=== PATIENT | male | born 1995 | race Caucasian/White ===

== ENCOUNTER 2021-12-06 12:14 | Emergency (ER) | payer OTHER ==
[2021-12-06 12:24] VITALS: BP 144/67
[2021-12-06] MEDS ORDERED: BACITRACIN ZINC OINT 1 PACKET TOP STA (12:48)
--- NOTE | 2021-12-06 12:48 | ED Physician Documentation ---
PD HPI UPPER EXT INJURY - Stated complaint Stated Complaint: LAC RT THUMB - Chief complaint Chief Complaint: Laceration - History obtained from History obtained from: Patient - History of Present Illness Location: Left, Finger Type of injury: Laceration - Additonal information Additional information: 26yoM presents after accidental laceration to L thumb. Cut on piece of metal just prior to arrival. Up to date on tetanus shot. Patient here because he is worried that he might get it infected. He works in a kitchen and handles raw meat frequently. Denies numbness, weakness, decreased movement, decreased sensation, other complaints at this time. Review of Systems Ten Systems: 10 systems reviewed and negative Constitutional: denies: Fever, Chills, Myalgias, Fatigue, Weight Loss, Sweats, Reviewed and negative, Other Eyes: denies: Loss of vision, Decreased vision, Photophobia, Discharge, Irritation, Reviewed and negative, Other Ears: denies: Loss of hearing, Ear pain, Drainage/discharge, Tinnitus/ringing, Foreign body, Reviewed and negative, Other Nose: denies: Rhinorrhea / runny nose, Congestion, Epistaxis, Sinus pressure / pain, Foreign Body, Reviewed and negative, Other Throat: denies: Dental pain / toothache, Oral lesions / sores, Sore throat, Swollen tonsils, Swallowed foreign body, Reviewed and negative, Other Cardiac: denies: Chest pain / pressure, Palpitations, Pedal edema, Calf pain, Reviewed and negative, Other Respiratory: denies: Dyspnea, Cough, Hemoptysis, Wheezing, Reviewed and negative, Other GI: denies: Abdominal Pain, Abdominal Swelling, Nausea, Vomiting, Constipation, Diarrhea, Hematemesis, Bloody / black stool, Reviewed and negative, Other : denies: Dysuria, Frequency, Hesitancy, Unable to Void, Incontinent, Hematuria, Discharge, LMP, Vaginal bleeding, Irregular menses, Missed period, Now EGA, Control, Hysterectomy, Testicular pain, Testicular mass, Camacho Problem, Reviewed and negative, Other Skin: reports: Laceration (s). denies: Rash, Lesions, Bite / sting Musculoskeletal: denies: Neck pain, Back pain, Extremity pain, Joint pain, Extremity swelling, Joint swelling, Pain with weight bearing, Reviewed and negative, Other Neurologic: denies: Generalized weakness, Focal weakness, Numbness, Difficulty speaking, Near syncope, Syncope, Seizure, Confused, Altered mental status, Unresponsive, Headache, Head injury, LOC, Reviewed and negative, Other Psychiatric: reports: Reviewed and negative. denies: Depressed, Suicidal, Homicidal, Hallucinations, Delusions, Anxiety, Insomnia, Other PD PAST MEDICAL HISTORY - Past Medical History Past Medical History: No - Allergies Allergies/Adverse Reactions: Allergies Allergy/AdvReac Type Severity Reaction Status Date / Time No Known Drug Allergies Allergy Verified 12/06/21 12:24 PD ED PE NORMAL - Vitals Vital signs reviewed: Yes - General General: Alert and oriented X 3, No acute distress, Well developed/nourished, Other - HEENT HEENT: Atraumatic, PERRL, EOMI, Ears normal, Moist mucous membranes, Pharynx benign, Dentition benign, Other - Neck Neck: Supple, no meningeal sign, No bony TTP, No adenopathy, Thyroid normal, No JVD, No bruit, C-Spine cleared by NEXUS criteria, Other - Cardiac Cardiac: RRR, No murmur, No gallop, No rub, Strong equal pulses, Other - Respiratory Respiratory: No respiratory distress, Clear bilaterally, Other - Abdomen Abdomen: Normal bowel sounds, Soft, Non tender, Non distended, No organomegaly, Other - Male Male : Deferred - Derm Derm: Normal color, Warm and dry, No rash, Other (superficial 1cm laceration base L thumb) PD ED PE EXPANDED - Extremities CHA UE/Hands Visual: 1 - laceration (1cm) Results - Vitals Vitals: Vital Signs - 24 hr 12/06/21 12:21 Temperature 36.3 C L Heart Rate 99 Respiratory 16 Rate Blood Pressure 144/67 H O2 Saturation 97 Oxygen O2 Source Room air PD MEDICAL DECISION MAKING - ED course ED course: 1cm superficial laceration. No tendon involvement. UTD on tetanus. Patient declined sutures, requested note for work in order to avoid contaminating laceration with raw meat Departure - Departure Disposition: 01 Home, Self Care Clinical Impression: Laceration Condition: Good Instructions: ED Laceration All, ED Laceration Hand Comments: Keep wound clean and dry. Change bandage at least once daily. Avoid handling raw food or standing water until wound closes in approximately 3 to 4 days. Take Tylenol and Motrin as needed for pain. Discharge Date/Time: 12/06/21 12:57
== END 2021-12-06 12:57 | disposition home or self-care (01) ==
LOC: ED 12:14
DX: S61.011A Laceration without foreign body of right thumb without damage to nail, initial encounter (principal); W26.8XXA Contact with other sharp object(s), not elsewhere classified, initial encounter
CPT/HCPCS: 99281; 99282; A9270

== ENCOUNTER 2022-04-09 12:24 | Emergency (ER) | payer OTHER ==
[2022-04-09 12:38] VITALS: BP 135/69
[2022-04-09 13:07] LABS: BILIRUBIN,URINE NEGATIVE (NEGATIVE); GLUCOSE, URINE (UA) NEGATIVE (NEGATIVE); KETONES,URINE (UA) NEGATIVE (NEGATIVE); LEUKOCYTE ESTERASE, URINE NEGATIVE (NEGATIVE); NITRITE,URINE NEGATIVE (NEGATIVE); OCCULT BLOOD,URINE NEGATIVE (NEGATIVE); PH,URINE 6.5 PH (5.0-7.5); PROTEIN,URINE NEGATIVE (NEGATIVE); UROBILINOGEN,URINE 0.2 (NORMAL) E.U./dL (NORMAL)
[2022-04-09 13:12] LABS: CLARITY,URINE CLEAR (CLEAR)
[2022-04-09 13:26] LABS: BASOPHILS # (AUTO) 0.1 10^3/uL (0.0-0.1); BASOPHILS % (AUTO) 1.3 %; EOSINOPHILS # (AUTO) 0.4 10^3/uL (0.0-0.7); EOSINOPHILS % (AUTO) 6.5 %; HCT - HEMATOCRIT 43.4 % (42.0-52.0); HGB - HEMOGLOBIN 14.3 g/dL (14.0-18.0); LYMPHOCYTES # (AUTO) 2.7 10^3/uL (1.5-3.5); LYMPHOCYTES % (AUTO) 40.1 %; MEAN CORPUSCULAR HEMOGLOBIN 28.8 pg (27.0-31.0); MEAN CORPUSCULAR HGB CONC 32.9 g/dL (32.0-36.0); MEAN CORPUSCULAR VOLUME 87.5 fL (80.0-94.0); MEAN PLATELET VOLUME 9.7 fL (7.4-11.4); MONOCYTES # (AUTO) 0.4 10^3/uL (0.0-1.0); MONOCYTES % (AUTO) 6.5 %; NEUTROPHILS # (AUTO) 3.1 10^3/uL (1.5-6.6); NEUTROPHILS % (AUTO) 45.5 %; PLT - PLATELET COUNT 245 10^3/uL (130-450); RED BLOOD COUNT 4.96 10^6/uL (4.70-6.10); RED CELL DISTRIBUTION WIDTH 12.5 % (12.0-15.0); WHITE BLOOD COUNT 6.8 x10^3/uL (4.8-10.8)
[2022-04-09 13:30] LABS: ALBUMIN 4.5 g/dL (3.2-5.5); ALBUMIN/GLOBULIN RATIO 1.5 (1.0-2.2); BILIRUBIN,TOTAL 0.6 mg/dL (0.2-1.0); CALCIUM 9.6 mg/dL (8.5-10.3); CREATININE 1.1 mg/dL (0.6-1.2); TOTAL PROTEIN 7.6 g/dL (6.7-8.2)
== END 2022-04-09 14:16 | disposition left against medical advice (07) ==
LOC: ED 12:24
DX: Z53.21 Procedure and treatment not carried out due to patient leaving prior to being seen by health care provider (principal)
CPT/HCPCS: 36415; 80053; 81001; 81003; 83690; 85025; 87086

== ENCOUNTER 2022-04-29 10:07 | Outpatient (CLI) | payer OTHER | END 2022-04-29 23:59 | disposition critical access hospital (66) | LOC: EMS 10:07 | DX: R10.32 Left lower quadrant pain (principal); R07.9 Chest pain, unspecified; R11.0 Nausea | CPT/HCPCS: A0425; A0427 ==

== ENCOUNTER 2022-04-29 10:28 | Emergency (ER) | payer OTHER ==
--- NOTE | 2022-04-29 10:48 | ED Physician Documentation ---
PD HPI ABD PAIN - Stated complaint Stated Complaint: L FLANK PX - Chief complaint Chief Complaint: Abd Pain - History obtained from History obtained from: Patient, EMS - History of Present Illness Timing - onset: Today Timing - duration: Minutes Timing - details: Abrupt onset, Still present Pain level max: 10 Pain level now: 10 Quality: Sharp, Pain Location: LLQ Radiation: Left flank Improved by: Laying still Worsened by: Breathing Associated symptoms: No: Fever, Nausea, Vomiting, Hematemesis, Diarrhea, Constipation Similar symptoms before: Has not had sx before Recently seen: Not recently seen - Additional information Additional information: 26 y/o male with acute left flank pain this morning. Worst pain he has ever had seems like deep breathing makes it worse. Review of Systems Constitutional: denies: Fever Ears: denies: Ear pain Nose: denies: Congestion Throat: denies: Sore throat Cardiac: denies: Chest pain / pressure, Palpitations Respiratory: denies: Dyspnea, Cough GI: reports: Abdominal Pain, Nausea. denies: Constipation, Diarrhea : denies: Dysuria, Frequency Skin: denies: Rash Musculoskeletal: reports: Back pain. denies: Neck pain, Extremity pain Neurologic: denies: Generalized weakness, Focal weakness, Numbness PD PAST MEDICAL HISTORY - Present Medications Home Medications: Ambulatory Orders Medication Instructions Recorded Confirmed HYDROcod/ACETAM 5/325 [[place] 5/325] 1 - 2 tablet PO Q6H PRN #14 tablet 04/29/22 - Allergies Allergies/Adverse Reactions: Allergies Allergy/AdvReac Type Severity Reaction Status Date / Time No Known Drug Allergies Allergy Verified 04/29/22 10:41 PD ED PE NORMAL - Vitals Vital signs reviewed: Yes - General General: Alert and oriented X 3, Well developed/nourished, Other (uncomfortable male appears to be in pain ) - HEENT HEENT: Atraumatic, PERRL, EOMI - Neck Neck: Supple, no meningeal sign - Cardiac Cardiac: RRR, No murmur - Respiratory Respiratory: No respiratory distress, Clear bilaterally - Abdomen Abdomen: Normal bowel sounds, Soft, Non tender, Non distended, No organomegaly - Back Back: No CVA TTP, No spinal TTP - Derm Derm: Normal color, Warm and dry, No rash - Extremities Extremities: No deformity, No edema - Neuro Neuro: Alert and oriented X 3, behavioral health specialist 2-12 intact, No motor deficit, No sensory deficit, Normal speech Eye Opening: Spontaneous Motor: Obeys Commands Verbal: Oriented GCS Score: 15 - Psych Psych: Normal mood, Normal affect Results - Vitals Vitals: Vital Signs - 24 hr 04/29/22 04/29/22 10:33 12:18 Temperature 35.6 C L Heart Rate 59 L 63 Respiratory 14 20 Rate Blood Pressure 158/90 H 116/78 O2 Saturation 99 96 Oxygen O2 Source Room air - Labs Labs: Laboratory Tests 04/29/22 04/29/22 10:34 10:34 WBC 8.6 RBC 4.94 Hgb 14.0 Hct 42.9 MCV 86.8 MCH 28.3 MCHC 32.6 RDW 12.3 Plt Count 241 MPV 10.0 Neut # (Auto) 6.2 Lymph # (Auto) 1.6 Baker # (Auto) 0.3 Eos # (Auto) 0.4 Baso # (Auto) 0.1 Absolute Nucleated RBC 0.00 Nucleated RBC % 0.0 Sodium 137 Potassium 3.5 Chloride 103 Carbon Dioxide 23 Anion Gap 11.0 BUN 21 H Creatinine 1.0 Estimated GFR (MDRD) 92 Glucose 122 H Calcium 9.3 Total Bilirubin 0.5 AST 19 ALT 14 Alkaline Phosphatase 64 Total Protein 7.7 Albumin 4.2 Globulin 3.5 Albumin/Globulin Ratio 1.2 Lipase 29 Procedures - Bedside sono Bedside sono by EMP: With use of POCUS the left flank is imaged there is evidence of hydronephrosis and the kidney is sonographically nontender PD MEDICAL DECISION MAKING - ED course Complexity details: reviewed results, re-evaluated patient, considered differential, d/w patient, d/w family ED course: 26 y/o male with left flank pain has hydro on POCUS and a distal 3mm stone on CT ab/pel. He is administered IV toradal and saline and at discharge he is given IV dilaudid. He has marked improvement and is expected to do well. Departure - Departure Disposition: 01 Home, Self Care Clinical Impression: Ureterolithiasis Condition: Stable Instructions: ED Stone Renal W Colic Follow-Up: DRAGAN Will [Provider Group] Luis Felipe Davidson MD [Physician No Access] - Prescriptions: HYDROcod/ACETAM 5/325 [[place] 5/325] 1 - 2 tablet PO Q6H PRN #14 tablet PRN Reason: Pain Comments: Jeff, today it looks like you have a small kidney stone in the distal ureter. (its about to pass into the bladder). I have e-scribed some pain medication to the [facility] in [place]. A kidney stone causes severe pain but the overall result is that when the stone passes there is not much else to do. Make certain to stay hydrated. If your pain persists longer than 2 days make arrangements to follow up with the urologist. The stone is small enough that we do not expect this to be a problem . Discharge Date/Time: 04/29/22 12:20
[2022-04-29 10:53] LABS: BASOPHILS # (AUTO) 0.1 10^3/uL (0.0-0.1); BASOPHILS % (AUTO) 0.8 %; EOSINOPHILS # (AUTO) 0.4 10^3/uL (0.0-0.7); EOSINOPHILS % (AUTO) 4.2 %; HCT - HEMATOCRIT 42.9 % (42.0-52.0); LYMPHOCYTES # (AUTO) 1.6 10^3/uL (1.5-3.5); LYMPHOCYTES % (AUTO) 19.1 %; MEAN CORPUSCULAR HEMOGLOBIN 28.3 pg (27.0-31.0); MEAN CORPUSCULAR HGB CONC 32.6 g/dL (32.0-36.0); MEAN CORPUSCULAR VOLUME 86.8 fL (80.0-94.0); MONOCYTES # (AUTO) 0.3 10^3/uL (0.0-1.0); MONOCYTES % (AUTO) 3.3 %; NEUTROPHILS # (AUTO) 6.2 10^3/uL (1.5-6.6); NEUTROPHILS % (AUTO) 72.2 %; PLT - PLATELET COUNT 241 10^3/uL (130-450); RED BLOOD COUNT 4.94 10^6/uL (4.70-6.10); RED CELL DISTRIBUTION WIDTH 12.3 % (12.0-15.0); WHITE BLOOD COUNT 8.6 x10^3/uL (4.8-10.8)
[2022-04-29 11:03] LABS: ALBUMIN 4.2 g/dL (3.2-5.5); ALBUMIN/GLOBULIN RATIO 1.2 (1.0-2.2); BILIRUBIN,TOTAL 0.5 mg/dL (0.2-1.0); CALCIUM 9.3 mg/dL (8.5-10.3); POTASSIUM 3.5 mmol/L (3.5-5.0); TOTAL PROTEIN 7.7 g/dL (6.7-8.2)
--- NOTE | 2022-04-29 11:19 | CT Report ---
PROCEDURE: ABDOMEN/PELVIS WO INDICATIONS: L flank pain hydro on POCUS TECHNIQUE: Noncontrast 5 mm thick sections acquired from the diaphragms to the symphysis. 5 mm coronal and sagi ttal reformats were then performed. For radiation dose reduction, the following was used: automated exposure control, adjustment of mA and/or kV according to patient size. COMPARISON: None. FINDINGS: Image quality: Excellent. ABDOMEN: Lung bases: Mild dependent atelectasis in posterior aspect of bilateral lung bases are seen. Heart si ze is normal. Solid organs: Liver and spleen are normal in size. Gallbladder is within normal limits. Pancreas i s normal in contours. No adrenal nodules. Bilateral kidneys are normal in size. There is mild left-sided hydronephrosis and hydroureter with 3 mm stone seen in distal left ureter just proximal to left UVJ series 3 image 134. No right-sided ston es or hydronephrosis. No right-sided hydroureter. Peritoneum and bowel: Unenhanced bowel loops demonstrate normal wall thickness and caliber. No free fluid or air. Appendix is visualized and is within normal limits. Nodes and vessels: No retroperitoneal or mesenteric adenopathy by size criteria. Aorta and inferior vena cava are normal in caliber. Miscellaneous: No ventral hernias. PELVIS: Genitourinary: Bladder wall thickness is normal. Miscellaneous: No inguinal hernias or adenopathy. Bones: No suspicious bony lesions. No vertebral body compression fractures. IMPRESSION: 1. 3 mm left distal ureteral stone with mild left-sided hydronephrosis and hydroureter. No right-side d renal stones or hydronephrosis. No right hydroureter. Normal-appearing urinary bladder. 2. No bowel obstruction or abnormal bowel wall thickening. No free fluid of free air. Normal appendix . Reviewed by: Gagandeep Pemberton MD on 04/29/2022 11:18 AM [facility] Approved by: Gagandeep Pemberton MD on 04/29/2022 11:18 AM PST Station ID: [id number]
[2022-04-29] MEDS ORDERED: HYDROmorphone 1 MG/ML CARPUJECT IVP STA (11:37)
[2022-04-29 12:20] VITALS: BP 116/78
== END 2022-04-29 12:20 | disposition home or self-care (01) ==
LOC: EDUNIT# → ED 10:28
DX: N13.2 Hydronephrosis with renal and ureteral calculous obstruction (principal)
CPT/HCPCS: 36415; 74176; 80053; 83690; 85025; 96374; 99284; J1170

== ENCOUNTER 2022-11-29 15:45 | Outpatient (CLI) | payer OTHER | END 2022-11-29 16:00 | disposition home or self-care (01) | LOC: LAB.N 15:45 | PROVIDERS: ATTEND Nurse Practitioner | DX: T14.8XXA Other injury of unspecified body region, initial encounter (principal) | CPT/HCPCS: 87070; 87205 ==

== ENCOUNTER 2023-03-08 12:00 | Outpatient (CLI) | payer OTHER ==
[2023-03-08 17:47] LABS: BASOPHILS # (AUTO) 0.1 10^3/uL (0.0-0.1); BASOPHILS % (AUTO) 1.2 %; EOSINOPHILS # (AUTO) 0.3 10^3/uL (0.0-0.7); EOSINOPHILS % (AUTO) 5.1 %; HCT - HEMATOCRIT 41.7 % (42.0-52.0); LYMPHOCYTES # (AUTO) 1.9 10^3/uL (1.5-3.5); LYMPHOCYTES % (AUTO) 36.8 %; MEAN CORPUSCULAR HEMOGLOBIN 29.9 pg (27.0-31.0); MEAN CORPUSCULAR HGB CONC 33.6 g/dL (32.0-36.0); MEAN CORPUSCULAR VOLUME 88.9 fL (80.0-94.0); MEAN PLATELET VOLUME 10.3 fL (7.4-11.4); MONOCYTES # (AUTO) 0.4 10^3/uL (0.0-1.0); MONOCYTES % (AUTO) 7.8 %; NEUTROPHILS # (AUTO) 2.5 10^3/uL (1.5-6.6); NEUTROPHILS % (AUTO) 48.9 %; PLT - PLATELET COUNT 240 10^3/uL (130-450); RED BLOOD COUNT 4.69 10^6/uL (4.70-6.10); RED CELL DISTRIBUTION WIDTH 12.6 % (12.0-15.0); WHITE BLOOD COUNT 5.1 x10^3/uL (4.8-10.8)
[2023-03-08 17:56] LABS: INFECTIOUS MONONUCLEOSIS NEGATIVE (Negative)
[2023-03-08 18:03] LABS: % IRON SATURATION 27 % (20-50); ALBUMIN 4.4 g/dL (3.2-5.5); ALBUMIN/GLOBULIN RATIO 1.7 (1.0-2.2); ALKALINE PHOSPHATASE 66 IU/L (42-121); ALT ALANINE AMINOTRANSFERASE 22 IU/L (10-60); AST ASPARTATE AMINOTRANSFERASE 19 IU/L (10-42); BILIRUBIN,TOTAL 0.3 mg/dL (0.2-1.0); BUN - BLOOD UREA NITROGEN 18 mg/dL (6-20); CALCIUM 9.5 mg/dL (8.5-10.3); CARBON DIOXIDE - CO2 28 mmol/L (21-32); CHLORIDE 104 mmol/L (101-111); CREATININE 1.2 mg/dL (0.6-1.3); CRP - C-REACTIVE PROTEIN < 0.5 mg/dL (<0.5); GFR - MDRD 74 (>89); GLUCOSE 92 mg/dL (74-104); IRON 109 ug/dL (50-212); LIPASE 24 U/L (11-82); SODIUM 137 mmol/L (135-145); TOTAL IRON BINDING CAPACITY 399 ug/dL (250-450); TRANSFERRIN 285 mg/dL (203-362)
== END 2023-03-08 12:15 | disposition home or self-care (01) ==
LOC: LAB.N 12:00
PROVIDERS: ATTEND Registered Nurse
DX: K92.0 Hematemesis (principal); R10.12 Left upper quadrant pain
CPT/HCPCS: 36415; 80053; 83540; 83690; 84466; 85025; 86140; 86308

== ENCOUNTER 2023-03-31 15:47 | Emergency (ER) | payer OTHER ==
[2023-03-31 15:54] VITALS: BP 158/88; O2SAT 99
--- NOTE | 2023-03-31 16:20 | XRAY Report ---
PROCEDURE: Foot 3 View LT INDICATIONS: Trauma TECHNIQUE: 3 views of the foot were acquired. COMPARISON: None. FINDINGS: Bones: Age-indeterminate chip fracture of the fifth proximal phalanx head. Soft tissues: No suspicious soft tissue calcifications or masses. IMPRESSION: Age-indeterminate chip fracture of the fifth proximal phalanx head. Reviewed by: Joe Shepard on 03/31/2023 4:19 PM PST Approved by: Joe Shepard on 03/31/2023 4:19 PM [facility] Station ID: [id number]
--- NOTE | 2023-03-31 16:35 | ED Physician Documentation ---
PD HPI LOWER EXT INJURY - Stated complaint Stated Complaint: LT TOE PX - Chief complaint Chief Complaint: Ext Problem - History obtained from History obtained from: Patient - History of Present Illness PD HPI LOW EXT INJURY LOCATION: Left, Toe (5th) Pain level max: 2 Pain level now: 1 Improved by: Rest Worsened by: Moving, Palpating Associated symptoms: Discolored (states bruised last night, but not today). No: Weakness, Numbness, Tingling, Swelling Recently seen: Not recently seen - Additional information Additional information: 27-year-old male with a left fifth toe injury. States he injured it getting out of bed. He states last night it was swollen and bruised but not bruised today. He states he does have a history of a fracture in that toe. He states he is having some mild foot pain today but the [facility] wanted him to be "checked out". Worse with walking, better with rest. No other injuries Review of Systems Constitutional: denies: Fever, Chills GI: denies: Vomiting, Diarrhea Skin: denies: Rash PD PAST MEDICAL HISTORY - Past Medical History Past Medical History: No - Past Surgical History Past Surgical History: No - Present Medications Home Medications: Ambulatory Orders Medication Instructions Recorded Confirmed No Known Home Medications 03/31/23 03/31/23 - Allergies Allergies/Adverse Reactions: Allergies Allergy/AdvReac Type Severity Reaction Status Date / Time No Known Drug Allergies Allergy Verified 04/29/22 10:41 - Social History Does the pt smoke?: No Smoking Status: Never smoker PD ED PE NORMAL - Vitals Vital signs reviewed: Yes - General General: Alert and oriented X 3, No acute distress - HEENT HEENT: Moist mucous membranes - Derm Derm: Warm and dry - Extremities Extremities: Other (Left foot - No tenderness to palpation over the fifth toe. no swelling, no bruising. NVI.There is mild tenderness on the dorsum of the foot, no deformity. Otherwise normal examination of the foot.) - Neuro Neuro: Alert and oriented X 3 Results - Vitals Vitals: Vital Signs - 24 hr 03/31/23 15:52 Temperature 36.6 C Heart Rate 96 Respiratory 16 Rate Blood Pressure 158/88 H O2 Saturation 99 Oxygen O2 Source Room air - Rads (name of study) L foot xray Relevant Findings:: Final report received, See rad report PD Medical Decision Making - ED course Complexity details: reviewed results, considered differential, d/w patient ED course: There is an age-indeterminate chip fracture off the proximal phalanx of the fifth toe. He does not have any swelling pain or tenderness at this site. Likely that this represents an old fracture. Otherwise normal x-ray of the foot. We will have him utilize Motrin Tylenol as needed for pain and [place]. Patient counseled regarding signs and symptoms for which I believe and urgent re-evaluation would be necessary. Patient with good understanding of and agreement to plan and is comfortable going home at this time This document was made in part using voice recognition software. While efforts are made to proofread this document, sound alike and grammatical errors may occur. Departure - Departure Disposition: 01 Home, Self Care Clinical Impression: Toe pain Qualifiers: Laterality: left Qualified Code(s): M79.675 - Pain in left toe(s) Condition: Good Instructions: ED Sprain Toe Follow-Up: your,doctor in 1 week [Other] Comments: Your x-ray does show a potential small chip fracture at the proximal phalanx head of the fifth toe, this is age-indeterminate. There are no other acute findings on your x-ray. You can use Motrin or Tylenol as needed for pain. Follow-up with your PCM for further care. Forms: PCP List Discharge Date/Time: 03/31/23 16:41
== END 2023-03-31 16:41 | disposition home or self-care (01) ==
LOC: ED 15:47
DX: M79.675 Pain in left toe(s) (principal)
CPT/HCPCS: 99283

== ENCOUNTER 2023-10-09 11:45 | Outpatient (CLI) | payer OTHER ==
--- NOTE | 2023-10-09 16:39 | XRAY Report ---
PROCEDURE: Chest 2V INDICATIONS: CHEST PAIN TECHNIQUE: 2 views of the chest were acquired. COMPARISON: 04/29/2022 FINDINGS: Surgical changes and devices: None. Lungs and pleura: No pleural effusions or pneumothorax. Lungs are clear. Mediastinum: Mediastinal contours appear normal. Heart size is normal. Bones and chest wall: No suspicious bony lesions. Overlying soft tissues appear unremarkable. IMPRESSION: No acute cardiopulmonary process. Reviewed by: Joe Shepard MD on 10/09/2023 4:38 PM PDT Approved by: Joe Shepard MD on 10/09/2023 4:38 PM PDT Station ID: [id number]
== END 2023-10-09 12:00 | disposition home or self-care (01) ==
LOC: DI.N 11:45
PROVIDERS: ATTEND Physician Assistant
DX: R07.9 Chest pain, unspecified (principal)